=== PATIENT | female | born 1990 | race Caucasian/White ===

== ENCOUNTER 2019-09-24 19:43 | Emergency (ER) | payer OTHER ==
[2019-09-24] MEDS ORDERED: DIPHENHYDRAMINE HCL 50 MG/ML VIAL IV ONE (19:55)
[2019-09-24] MEDS ORDERED: FAMOTIDINE INJ/PF 20 MG/2 ML SDV IV ONE (19:56)
[2019-09-24] MEDS ORDERED: METHYLPREDNISOLONE INJ 125 MG/2 ML SDV IV ONE (19:56)
--- NOTE | 2019-09-24 20:01 | ER Document Report ---
ED Allergic Reaction - General Chief Complaint: Allergic Reaction Stated Complaint: POSSIBLE ALLERGIC REACTION-THROAT TIGHTNESS Time Seen by Provider: 09/24/19 19:51 Mode of Arrival: Ambulatory Information source: Patient TRAVEL OUTSIDE OF THE [place] IN LAST 30 DAYS: No - HPI Onset: Just prior to arrival Onset/Duration: Sudden Quality of pain: No pain Severity: Moderate Identified cause: Yes - Shrimp Food exposure: Shellfish Swelling: Throat Trouble swallowing / speaking: Mild Associated symptoms: Heart racing Similar symptoms previously: Yes - one time 7 years ago Recently seen / treated by doctor: No Notes: 29 year old female with a history of a shell fish allergy here in the ER for concern of an allergic reaction. The patient was eating some pasta that was supposed to be vegetarian and she ended up taking a bite of shrimp. The patient started to have a scratchy sensation in her throat and also felt like her throat was swelling some. The patient also noticed her heart racing. The patient denies trouble breathing, trouble speaking, trouble swallowing, rash, redness. The patient says this happened to her once before about 7 years ago but she does not think she was ever given Epinephrine for it. - Related Data Allergies/Adverse Reactions: shellfish derived Allergy (Verified 09/24/19 20:19) Facial swelling Past Medical History - General Information source: Patient - Social History Smoking Status: Never Smoker Frequency of alcohol use: None Drug Abuse: None Lives with: Family Family History: Reviewed & Not Pertinent Patient has suicidal ideation: No Patient has homicidal ideation: No Review of Systems - Review of Systems Constitutional: No symptoms reported EENT: Throat pain, Throat swelling Cardiovascular: Heart racing Physical Exam - Vital signs Vitals: Temp Pulse Resp BP Pulse Ox 98.3 F 90 14 135/88 H 100 09/24/19 19:51 09/24/19 19:51 09/24/19 19:51 09/24/19 19:51 09/24/19 19:51 - Notes Notes: GENERAL: Well-appearing, well-nourished and in no acute distress. HEAD: Atraumatic, normocephalic. EYES: Pupils equal round and reactive to light, extraocular movements intact, sclera anicteric, conjunctiva are normal. ENT: External ears normal, nares patent, oropharynx clear without exudates. Uvular mildly swollen. Moist mucous membranes. NECK: Normal range of motion, supple without lymphadenopathy or JVD. LUNGS: Breath sounds clear to auscultation bilaterally and equal. No wheezes rales or rhonchi. HEART: Regular rate and rhythm without murmurs, rubs or gallops. ABDOMEN: Soft, nontender, normoactive bowel sounds. No guarding, no rebound. No masses appreciated. EXTREMITIES: Normal range of motion, no pitting or edema. No clubbing or cyanosis. NEUROLOGICAL: Cranial nerves II through XII grossly intact. Normal speech, normal gait. PSYCH: Normal mood, normal affect. SKIN: Warm, Dry, normal turgor, no rashes or lesions noted. Course - Re-evaluation Re-evalutation: 09/24/19 20:57 The patient was treated with IV Benadryl 25mg, IV Pepcid 20mg, and IV solumedrol 125mg with improvement of symptoms. Patient never had hives or a rash. Patient says her throat feels better and she not longer feels the back of her throat is swollen. Uvula size looks back to normal at this point. Will DC patient with script for Prednisone and have her use over the counter Benadryl. Will also prescribe her an epi pen. - Vital Signs Vital signs: Temp Pulse Resp BP Pulse Ox 98.3 F 90 14 135/88 H 100 09/24/19 19:51 09/24/19 19:51 09/24/19 19:51 09/24/19 19:51 09/24/19 19:51 Discharge - Discharge Clinical Impression: Shellfish allergy Allergic reaction to food Qualifiers: Encounter type: initial encounter Qualified Code(s): T78.1XXA - Other adverse food reactions, not elsewhere classified, initial encounter Condition: Stable Disposition: HOME, SELF-CARE Instructions: Use of Diphenhydramine, Acute Allergic Reaction ([facility]), Epinephrine Additional Instructions: Take Prednisone as prescribed. Also use over the counter Benadryl 25mg every 6-8 hours as needed. Use an Epi Pen for any future allergic reactions with trouble breathing. Prescriptions: Prednisone [Deltasone 20 mg Tablet] 60 mg PO DAILY 2 Days #6 tablet Epinephrine [Epipen 2-Tra] 0.3 mg IM ONCE PRN #1 packet PRN Reason:
[2019-09-24] MEDS ORDERED: ONDANSETRON HCL INJ/PF 4 MG/2 ML SDV IV ONE (20:12)
[2019-09-24 21:54] VITALS: BP 128/76
== END 2019-09-24 20:40 | disposition home or self-care (01) ==
LOC: ER 19:43
DX: T78.1XXA Other adverse food reactions, not elsewhere classified, initial encounter (principal); R09.89 Other specified symptoms and signs involving the circulatory and respiratory systems; R07.0 Pain in throat
CPT/HCPCS: 99283; 96374; 96375; J1200; J2930; J2405; S0028